=== PATIENT | female | born 1955 | race Caucasian/White ===

== ENCOUNTER 2023-07-30 17:59 | Emergency (ER) | payer MEDICARE ==
[~2023-07-30] VITALS: Ht 165.1 cm; Wt 49.9 kg
[2023-07-30] MEDS ORDERED: NAPROXEN 500 MG TABLET ONE (18:42)
[2023-07-30] MEDS ORDERED: NAPROXEN 500 MG TABLET PO ONE (18:45)
[2023-07-30 20:21] VITALS: BP 125/70; TEMP 98.6; O2SAT 98
== END 2023-07-30 20:23 | disposition home or self-care (01) ==
LOC: ER 18:05
DX: S92.202A Fracture of unspecified tarsal bone(s) of left foot, initial encounter for closed fracture (principal); X50.1XXA Overexertion from prolonged static or awkward postures, initial encounter; Y93.89 Activity, other specified; Y92.89 Other specified places as the place of occurrence of the external cause; Y99.8 Other external cause status
CPT/HCPCS: 73630; A4606; A4663